=== PATIENT | female | born 1950 | race Caucasian/White ===

== ENCOUNTER → 2017-12-03 10:16 | Outpatient (CLI) | payer MEDICARE, SELFPAY ==
--- NOTE | 2017-12-03 | DI.NM.S_ITS ---
PROCEDURE: NM RENAL FLOW AND FUNCTION RADIOPHARMACEUTICAL: 9.9 mCi Tc-99m MAG3 IV. INDICATIONS: HYDRONEPHROSIS. A 2.3 cm right renal stone with hydronephrosis and pyelonephritis requiring nephrostomy. TECHNIQUE: The patient was hydrated orally before the examination was begun. After intravenous administration of Tc-99m MAG3, posterior abdominal radionuclide angiogram and sequential (1 minute per frame) renal images were obtained. A time-activity curve for each kidney was generated and analyzed. COMPARISON: [facility], , CT ABDOMEN/PELVIS WITH CONTRAST, 11/30/2017, 11:16. FINDINGS: Perfusion: There is symmetrical vascular perfusion to both kidneys. Morphology: The left kidney appears normal in size. The right kidney is poorly imaged and is essentially without function. There are no central photopenic regions to suggest dilated collecting system on the left. The left ureter and bladder are visualized, and appear normal in morphology. Function: The left kidney demonstrates normal cortical tracer uptake, with [id number] activity ranging from 3 to 5 minutes. The right kidney contributes sterile % of total renal function. The left kidney contributes 100 % of total renal function. There is normal tracer excretion by the left kidney, and subsequent clearance of activity from the renal collecting system. IMPRESSION: 1. Normal left renal function and excretion, accounting for 100% of total renal function. 2. The right kidney is atrophic with diminished cortical function and presence of multiple stones as well as nephrostomy tube by previous CT imaging. On current exam, the right kidney is nonfunctional. Possibility of right renal/ureteral obstruction cannot be assessed. Note: No Lasix was ordered and was not included in this exam. The nephrostomy tube was clamped during the study. Dictated by: Allen Kwong M.D. on 12/03/2017 at 14:46 Approved by: Allen Kwong M.D. on 12/03/2017 at 15:00
== END ==
PROVIDERS: PCP Urology; Visit Provider Family Medicine
DX: N13.6 Pyonephrosis (principal); N26.1 Atrophy of kidney (terminal); Z93.6 Other artificial openings of urinary tract status
CPT/HCPCS: 78708; A9562